=== PATIENT | male | born 1970 | race Caucasian/White ===

== ENCOUNTER 2018-10-06 03:51 | Inpatient (IN) | payer OTHER ==
[2018-10-06] MEDS ORDERED: morphine 4 MG/ML VIAL IV (05:30)
[2018-10-06] MEDS ORDERED: ALBUTEROL/IPRATROPIUM (NEB) 3 ML AMP HHN (05:30)
[2018-10-06] MEDS ORDERED: NACL 0.9% 3 ML SYG IV (05:30)
[2018-10-06] MEDS: DEXTROSE 5%-0.45% NACL 1,000 ML IV ×3 (05:34→23:42)
[2018-10-06] MEDS: KETOROLAC 30 MG INJ IV (05:39)
[2018-10-06 06:26] LABS: ADD MAN DIFF? NO
[2018-10-06 06:35] LABS: BASOPHILS % 0.5 % (0.0-2.0); EOSINOPHILS # 0.2 10^3/ul (0.0-0.5); EOSINOPHILS % 3.8 % (0.0-7.0); HEMATOCRIT 39.3 % (42.0-52.0); HEMOGLOBIN 13.5 g/dl (14.0-18.0); LYMPHOCYTES # 1.7 10^3/ul (0.8-2.9); LYMPHOCYTES % 29.7 % (15.0-51.0); MEAN CORPUSCULAR HEMOGLOBIN 31.4 pg (29.0-33.0); MEAN CORPUSCULAR HGB CONC 34.4 g/dl (32.0-37.0); MEAN CORPUSCULAR VOLUME 91.4 fl (82.0-101.0); MEAN PLATELET VOLUME 10.4 fl (7.4-10.4); MONOCYTE # 0.4 10^3/ul (0.3-0.9); NEUTROPHIL # 3.3 10^3/ul (1.6-7.5); NEUTROPHILS % 58.8 % (39.0-77.0); PLATELET COUNT 216 10^3/UL (140-415); RED CELL DISTRIBUTION WIDTH 12.7 % (11.5-14.5)
[2018-10-06 06:35] LABS: WHITE BLOOD COUNT 5.6 10^3/ul (4.8-10.8)
[2018-10-06 07:10] LABS: ALANINE AMINOTRANSFERASE 64 IU/L (13-69); ALBUMIN 3.8 g/dl (3.3-4.9); ALKALINE PHOSPHATASE 118 IU/L (42-121); ANION GAP 8 (5-13); ASPARTATE AMINO TRANSFERASE 56 IU/L (15-46); BILIRUBIN,INDIRECT 0.5 mg/dl (0-1.1); BILIRUBIN,TOTAL 0.5 mg/dl (0.2-1.3); BLOOD UREA NITROGEN 5 mg/dl (7-20); CARBON DIOXIDE 30 mmol/L (21-31); CHLORIDE 100 mmol/L (97-110); CREATININE 0.57 mg/dl (0.61-1.24); Estimated GFR > 60 mL/min (>60); GLUCOSE 151 mg/dl (70-220); LIPASE 1865 U/L (23-300); MAGNESIUM 1.7 mg/dl (1.7-2.5); PHOSPHORUS 3.8 mg/dl (2.5-4.9); POTASSIUM 4.4 mmol/L (3.5-5.1); SODIUM 138 mmol/L (135-144); TOTAL PROTEIN 7.6 g/dl (6.1-8.1)
[2018-10-06] MEDS: FAMOTIDINE 20 MG INJ IV ×2 (09:21→21:21)
[2018-10-06 13:23] LABS: TRIGLYCERIDES 85 mg/dl (0-149)
[2018-10-07] MEDS: KETOROLAC 30 MG INJ IV ×2 (04:46→08:42)
[2018-10-07 05:43] LABS: ADD MAN DIFF? NO
[2018-10-07 05:46] LABS: BASOPHILS % 0.7 % (0.0-2.0); EOSINOPHILS # 0.1 10^3/ul (0.0-0.5); EOSINOPHILS % 2.9 % (0.0-7.0); HEMATOCRIT 38.6 % (42.0-52.0); HEMOGLOBIN 13.4 g/dl (14.0-18.0); LYMPHOCYTES # 1.6 10^3/ul (0.8-2.9); LYMPHOCYTES % 35.1 % (15.0-51.0); MEAN CORPUSCULAR HEMOGLOBIN 31.4 pg (29.0-33.0); MEAN CORPUSCULAR HGB CONC 34.7 g/dl (32.0-37.0); MEAN CORPUSCULAR VOLUME 90.4 fl (82.0-101.0); MEAN PLATELET VOLUME 10.5 fl (7.4-10.4); MONOCYTE # 0.5 10^3/ul (0.3-0.9); NEUTROPHIL # 2.2 10^3/ul (1.6-7.5); NEUTROPHILS % 50.1 % (39.0-77.0); PLATELET COUNT 206 10^3/UL (140-415); RED BLOOD COUNT 4.27 10^6/ul (4.70-6.10); RED CELL DISTRIBUTION WIDTH 12.7 % (11.5-14.5)
[2018-10-07 05:46] LABS: WHITE BLOOD COUNT 4.5 10^3/ul (4.8-10.8)
[2018-10-07 06:05] LABS: AMYLASE 85 U/L (11-123)
[2018-10-07 06:06] LABS: ALANINE AMINOTRANSFERASE 61 IU/L (13-69); ALBUMIN 3.5 g/dl (3.3-4.9); ALKALINE PHOSPHATASE 98 IU/L (42-121); ASPARTATE AMINO TRANSFERASE 53 IU/L (15-46); BILIRUBIN,INDIRECT 0.6 mg/dl (0-1.1); BILIRUBIN,TOTAL 0.6 mg/dl (0.2-1.3); LIPASE 734 U/L (23-300); TOTAL PROTEIN 6.9 g/dl (6.1-8.1)
[2018-10-07 06:11] LABS: ANION GAP 8 (5-13); BLOOD UREA NITROGEN 6 mg/dl (7-20); CALCIUM 9.2 mg/dl (8.4-10.2); CARBON DIOXIDE 30 mmol/L (21-31); CHLORIDE 100 mmol/L (97-110); CREATININE 0.61 mg/dl (0.61-1.24); Estimated GFR > 60 mL/min (>60); GLUCOSE 172 mg/dl (70-220); MAGNESIUM 1.8 mg/dl (1.7-2.5); PHOSPHORUS 4.6 mg/dl (2.5-4.9); POTASSIUM 4.1 mmol/L (3.5-5.1); SODIUM 138 mmol/L (135-144)
[2018-10-07] MEDS: FAMOTIDINE 20 MG INJ IV ×2 (08:13→21:04)
[2018-10-07] MEDS: DEXTROSE 5%-0.45% NACL 1,000 ML IV (08:13)
[2018-10-07] MEDS: ONDANSETRON 4 MG INJ IV (08:42)
[2018-10-07] MEDS: SOD CHLORIDE 0.9% 500 ML IV (16:18)
[2018-10-07] MEDS: SOD CHLORIDE 0.9% 1,000 ML IV (16:19)
[2018-10-07] MEDS: BISACODYL (EC) 5 MG TAB PO (17:54)
[2018-10-08] MEDS: SOD CHLORIDE 0.9% 1,000 ML IV ×3 (02:00→12:00)
[2018-10-08] MEDS: FAMOTIDINE 20 MG INJ IV (09:26)
[2018-10-08] MEDS: KETOROLAC 30 MG INJ IV (09:43)
== END 2018-10-08 14:20 | disposition home or self-care (01) | DRG 440 ==
LOC: 2NE 03:51
PROVIDERS: Internal Medicine
DX: K85.20 Alcohol induced acute pancreatitis without necrosis or infection (principal); K85.10 Biliary acute pancreatitis without necrosis or infection; F10.10 Alcohol abuse, uncomplicated; K80.20 Calculus of gallbladder without cholecystitis without obstruction
CPT/HCPCS: 78226; 80048; 80053; 80076; 82150; 83690; 83735; 84100; 84478; 85025; 87081